=== PATIENT | male | born 1990 | race Caucasian/White ===

== ENCOUNTER → 2017-01-07 | Outpatient (CLI) | payer BC | LOC: LAB 13:44 | PROVIDERS: ATTEND Nurse Practitioner Family | DX: R79.89 Other specified abnormal findings of blood chemistry (principal) | CPT/HCPCS: 36415; 84403 ==

== ENCOUNTER 2018-01-18 02:14 | Observation (INO) ==
[2018-01-18] MEDS ORDERED: Sodium Chloride 0.9% 1,000 ML PRIMARY IV ONE (02:40)
[2018-01-18] MEDS ORDERED: LORazepam 2 MG/1 ML VIAL IVP PRN ×2 (02:40→04:35)
[2018-01-18] MEDS ORDERED: LORazepam 2 MG/1 ML VIAL IVP ONE (02:41)
[2018-01-18 02:51] LABS: BASOPHILS # (AUTO) 0.05 10*3/UL; BASOPHILS % (AUTO) 0.5 % (0-1); EOSINOPHILS # (AUTO) 0.06 10*3/UL; EOSINOPHILS % (AUTO) 0.6 % (0-8); Hematocrit [HCT] 42.8 % (42.0-52.0); MEAN CORPUSCULAR HEMOGLOBIN 31.7 PG (27-31); MEAN CORPUSCULAR HGB CONC 37.4 g/dL (33-37); MEAN CORPUSCULAR VOLUME 84.9 FL (80-90); MEAN PLATELET VOLUME 10.7 FL (7.4-12.2); MONOCYTES # (AUTO) 0.93 10*3/UL (0.3-0.8); MONOCYTES % (AUTO) 9.4 % (5-15); NEUTROPHILS # (AUTO) 2.96 10*3/UL; NEUTROPHILS % (AUTO) 29.9 % (50-80); RED BLOOD COUNT 5.04 10^6/uL (4.70-6.10)
[2018-01-18 02:56] LABS: BLOOD UREA NITROGEN 8 mg/dL (7-22); BUN/CREATININE RATIO 11.42 (6-20); SERUM ALBUMIN 4.7 g/dL (3.5-4.8)
--- NOTE | 2018-01-18 02:56 | EKG ---
[address] [address] Measurements Intervals [place] Rate: 104 P: 265 NC: 66 QRS: 72 QRSD: 149 T: 73 QT: 427 QTc: 487 Interpretive Statements JUNCTIONAL TACHYCARDIA INTRAVENTRICULAR CONDUCTION DELAY [130+ ms QRS DURATION] Compared to ECG 08/23/2017 02:45:06 No significant changes Electronically Signed On 01-20-18 07:54:09 MDT by Merritt Casas MD [email or web address]
[2018-01-18 03:09] LABS: VENOUS PH 7.67 (7.32-7.42)
[2018-01-18 03:11] LABS: PLATELET MORPHOLOGY COMMENT NORMAL MORPHOLOGY (NORM); RBC MORPHOLOGY COMMENT NORMAL MORPHOLOGY (NORM); WBC MORPHOLOGY COMMENT NORMAL MORPHOLOGY (NORM)
[2018-01-18 03:45] LABS: AMPHETAMINE SCREEN NEGATIVE (NEG); CANNABINOID SCREEN,URINE NEGATIVE (NEG); COCAINE SCREEN NEGATIVE (NEG); METHADONE URINE SCREEN NEGATIVE (NEG); METHAMPHETAMINES SCREEN,URINE NEGATIVE (NEG); OPIATE SCREEN,URINE NEGATIVE (NEG); URINE SAMPLE TYPE CATH SPECIMEN; URINE SPECIFIC GRAVITY - MAN 1.015
--- NOTE | 2018-01-18 03:46 | DI ---
EXAM: CT Head Without Intravenous Contrast CLINICAL HISTORY: ITS.REASON seizure; head trauma Physician Notes: Tech Comments: TECHNIQUE: Axial computed tomography images of the head/brain without intravenous contrast. COMPARISON: 08/23/2017 FINDINGS: Brain: Unremarkable. No hemorrhage. No significant white matter disease. No edema. Ventricles: Unremarkable. No ventriculomegaly. Bones/joints: Unremarkable. No acute fracture. Soft tissues: There is mild right frontal scalp soft tissue swelling. Sinuses: Unremarkable as visualized. No acute sinusitis. Mastoid air cells: Unremarkable as visualized. No mastoid effusion. IMPRESSION: 1. No acute intracranial abnormality. 2. Mild right frontal scalp soft tissue swelling.
--- NOTE | 2018-01-18 03:50 | DI ---
EXAM: CT Cervical Spine Without Intravenous Contrast CLINICAL HISTORY: ITS.REASON seizure; head trauma Physician Notes: Tech Comments: TECHNIQUE: Axial computed tomography images of the cervical spine without intravenous contrast. COMPARISON: 12/19/2009 FINDINGS: Vertebrae: Unremarkable. No acute fracture. Discs/spinal canal/neural foramina: No acute findings. No spinal canal stenosis. Soft tissues: Unremarkable. IMPRESSION: Normal cervical spine CT.
--- NOTE | 2018-01-18 03:53 | DI ---
EXAM: CT Maxillofacial Without Intravenous Contrast CLINICAL HISTORY: ITS.REASON facial trauma Physician Notes: Tech Comments: TECHNIQUE: Axial computed tomography images of the face without intravenous contrast. COMPARISON: No relevant prior studies available. FINDINGS: Bones/joints: No acute fracture. Soft tissues: There is mild right frontal scalp soft tissue swelling. Orbits: Unremarkable. Sinuses: Unremarkable. No air-fluid levels. IMPRESSION: Mild right frontal scalp soft tissue swelling. No acute fracture..
[2018-01-18] MEDS ORDERED: LIDOCAINE 2% 20 MG/ML - 20 ML VIAL SUBCUT ONE (04:07)
[2018-01-18] MEDS ORDERED: LevETIRAcetam Tab 500 MG TABLET PO ONE (04:08)
--- NOTE | 2018-01-18 04:29 | PDOC ---
Seizure HPI - General Chief Complaint: Neurological Complaints Stated Complaint: SIEZURE Date Seen by Provider: 01/18/18 Time Seen by Provider: 02:13 Source: POSITIVE: Patient, EMS Exam Limitations: POSITIVE: No limitations Nurse's Notes Reviewed & Considered: Yes EMS Report Reviewed & Considered: Verbal - History of Present Illness Initial Comments: The patient is a 27-year-old male who is brought to the emergency room by ambulance. Patient states that he had a seizure. He states he fell asleep in his chair somewhere between 2300 and midnight. He states he woke up face down on the floor and states he noted he had was having bleeding from 2 lacerations, one above the right eye and one in the left upper eyelid and also bleeding from his nose. He states his nose is swollen. He states that he believes that he had a seizure. He also has a contusion to the tongue. Patient has a known seizure disorder and states he had his first seizure in September and has had one other seizure prior to his present one. He states he is under the care of a neurologist in [place], but cannot remember her name. He states he takes Keppra twice a day. He has a history of chronic back pain for which he takes Flexeril , hydrocodone and gabapentin. He states he has not had any alcohol for 2 years and denies use of illegal drugs. He states that he did have an EEG in [place], but is unsure what the results were. On presentation to the emergency room the patient was alert and oriented but extremely anxious and tremulous and hyperventilating. He denies any headache or neck pain. No focal sensory or motor symptoms. He is noted to have a contusion to his tongue and his nose is swollen and he has a 1-1/2 cm laceration over the left upper eyelid and a 1-1/2 cm laceration above the right eye. Accu-Chek blood glucose was 108. Body Location Affected: REPORTS: Head, Face, Other (Tongue. Probable seizure as above) Timing: REPORTS: Abrupt, Unknown (Onset of seizure activity unknown; patient was alone at home and episode was not witnessed.) Duration: Unknown Severity: Moderate Quality: REPORTS: "Pain" (Patient has some pain to the nose and around his laceration; see diagram) Witnessed Seizure?: No Preceding Symptoms/Context (specify in comments): REPORTS: None, Activity Prior to Seizure (Sleeping), Seiz. Meds Dosages Missed (Patient states he may have missed one dose of Keppra). DENIES: Recent Illness, Fever/Chills, Recent Alcohol Intake, Recent Drug Use, Sleep Deprivation, Changed Med or Dosage Character of Seizure(s): REPORTS: Lost Consciousness, Completely Unresponsive, Other (Probable seizure not witnessed; no seizure activity witnessed in the emergency room). DENIES: Incontinent of Urine, Incontinent of Stool Post-ictal Symptoms: REPORTS: Other (Seizure in any postictal activity not witnessed; see above) Recently seen/treated/hospitalized: Yes Any Prior Injuries Related to Current Complaint?: No - Patient Home Medications Home Medications: Home Medications Oxycodone HCl/Acetaminophen [Percocet 10-325 Mg Tablet] 1 ea PO Q4-6HRSPRN #180 tab 07/07/16 Gabapentin 300 mg PO BID 08/24/17 Cyclobenzaprine HCl [Flexeril] 5 mg PO DAILY 01/18/18 levETIRAcetam Tab [Keppra Tab] 500 mg PO BID 01/18/18 - Patient Allergies Allergies/Adverse Reactions: Allergies 3 Allergy/AdvReac Type Severity Reaction Status Date / Time amoxicillin Allergy NOT Verified 01/18/18 02:26 APPLICABLE Penicillins Allergy HIVES Verified 01/18/18 02:26 tetracycline Allergy HIVES Verified 01/18/18 02:26 Past Medical History - heen HEENT History: Denies History Additional HEENT History: EAR TUBES A CHILD Cardiovascular History: Denies History Respiratory History: Denies History Additional Respiratory History: A CHILD Gastrointestinal History: Denies History Genitourinary History: Denies History Endocrine History: Denies History Musculoskeletal History: Back Pain Prosthesis or Implant: No Additional Musculoskeletal History: MICRO DISCECTOMY IN 2013, L4-L5, L5-S1 FUSION ON 05/12/2015 Neurological History: Seizures Additional Neurological History: CONCUSSION Blood Disorders: Denies History Psychiatric History: Depression History of Sexually Transmitted Diseases: No Cancer History: Denies History In Past Year Been Physically Harmed or Verbally Threatened: No History of MDRO: No History of Other Communicable Diseases: No Tobacco Use: Never Smoker Alcohol Use: Occasionally In the Past 12 Months, Have Used or Abuse Any Substance: None Previous Surgical History: Yes Type / Date of Surgery: MICRO DISCECTOMY. BACK FUSION Anesthesia Reactions: No Malignant Hyperthermia: No Significant Family History: No pertinent family hx Past Medical History Reviewed: Reviewed - No Changes ROS - Limitations ROS Limitations: No Limitations, Other (please comment) (Patient very anxious and tremulous upon presentation to the emergency room; hyperventilating prominently) Constitution: REPORTS: Denies Symptoms Cardiovascular: REPORTS: Denies Cardiac Symptoms Respiratory: REPORTS: Denies Resp Symptoms Neurological: REPORTS: Seizure Activity (As above) Gastrointestinal: REPORTS: Denies GI Symptoms Endocrine: REPORTS: Denies Symptoms Musculoskeletal: REPORTS: Denies MS Symptoms Genitourinary: REPORTS: Denies Symptoms Eyes: REPORTS: Denies Symptoms ENT: REPORTS: Nose Pain, Other (Contusion to tongue. No swollen from trauma. Recent epistaxis) Skin: REPORTS: Other (1-1/2 cm laceration left upper eyelid and one and a half centimeter laceration above right eye) Lympathic: REPORTS: Denies Lympathic Symptoms Immunologic: POSITIVE: Denies Symptoms Psychiatric: POSITIVE: Anxiety Seizure Exam - General Appearance General Appearance: POSITIVE: Alert, Moderate Distress (Quite upset, tremulous and hyperventilating) - HEENT HEENT: POSITIVE: Head Inspection Nml, Eyes Inspection Nml, Ears Inspection Nml, Nose Inspection Nml (Swelling to nose with evidence of recent epistaxes. Septum midline and no septal hematomas), Oral/Dental Inspect. Nml, Pharynx Inspect. Nml, PERRL, EOMI - Pupil Size Pupil Size: 3 mm: Bilateral (PERRLA) - Neck Neck: POSITIVE: Non Tender, Neck Supple, Trachea Midline, Distracting Injuries. NEGATIVE: Nexus Criteria Negative - Respiratory Respiratory: POSITIVE: Chest Non Tender, No Ecchymosis, Breath Sounds Normal, No Respiratory Distress - Cardiovascular Cardiovascular: POSITIVE: Regular Rate and Rhythm, Heart Sounds Normal, Equal Pulses, Strong Pulses, No Murmur, No Gallop, No JVD, No Pulse Deficit Peripheral Pulses: Radial (R): 2+, Radial (L): 2+ - Abdomen Abdomen: Soft: (All Quadrants), Normal Bowel Sounds: (All Quadrants), Denies Tenderness: (All Quadrants), No Splenomegaly: (All Quadrants), No Hepatomegaly: (All Quadrants), No Guarding: (All Quadrants), No Rebound: (All Quadrants), No Palpable Pulse: (All Quadrants), No Palpabale Mass: (All Quadrants), No Distention: (All Quadrants), No Rigidity: (All Quadrants) - Skin Skin: POSITIVE: Other (Laceration was some local swelling left upper eyelid and laceration above right eye) - Extremities Extremity: Non-Tender: (All Extremities), Normal ROM: (All Extremities), Normal Inspection: (All Extremities) - Neuro / Psych Higher Functions: POSITIVE: Oriented x3, Speech Normal, Mood Appropriate, Affect Appropriate Cranial Nerves: POSITIVE: Normal As Tested, No Evidence of Acute CVA Cerebellar: POSITIVE: Normal As Tested Sensorimotor: POSITIVE: No Motor Deficits, No Sensory Deficits, Reflexes Normal , Symmetrical Procedure - Laceration/Wound Repair Site of Lac/Wound:: Left upper eyelid and above right eye; see diagram Time of Suture Placement:: 03:55 Wound Length (cm): 3 Wound's Depth, Shape: Into subcutaneous tissue, Linear Distal CMS: Yes Skin Prep: Other (Wounds cleansed with normal saline) Local Anesthesia Used - Indicate Amt Used in Comment: Lidocaine 2%: Yes Irrigated w/ Saline (mL): 20 Wound Explored: No foreign body removed Wound Debrided: Minimal Wound Repaired With: Sutures single layer Suture Size/Type: 5:0, Ethilon Number of Sutures: 5 Layer Closure?: No Drain Placement: No Sterile Dressing Applied?: Yes Procedure Note:: After local anesthesia with 2% lidocaine, the laceration to the left upper eyelid, which measures about 1.5 cm, was cleansed with normal saline and then repaired with 5-0 nylon simple interrupted sutures 3. Laceration above the right eye was also repaired after local anesthesia with 2% lidocaine; this laceration also measures about 1.5 cm and was repaired with 2 5-0 Ethilon simple interrupted sutures. Images - Head Head: 1 - Laceration 2 - Laceration 3 - Swelling and discomfort on palpation Seizure Progress - Results Reviewed by me Xrays/CTs/US Reviewed by me: Yes Discussed with Radiologist: Yes Radiology Findings: Radiologist report CT scan head, cervical spine and facial bones normal Lab Results Reviewed by Me: Yes (prominent respiratory alkalosis) Lab Results:: Laboratory Results 3 01/18/18 01/18/18 01/18/18 02:15 02:15 02:15 WBC 9.91 RBC 5.04 Hgb 16.0 Hct 42.8 MCV 84.9 MCH 31.7 H MCHC 37.4 H RDW Std Deviation 38.1 L RDW Coeff of Meredith 12.6 Plt Count 319 MPV 10.7 Immature Gran % (Auto) 0.1 Neut % (Auto) 29.9 L Lymph % (Auto) 59.5 H [place] % (Auto) 9.4 Eos % (Auto) 0.6 Baso % (Auto) 0.5 Immature Gran # (Auto) 0.01 Neut # (Auto) 2.96 Lymph # (Auto) 5.90 [place] # (Auto) 0.93 H Eos # (Auto) 0.06 Baso # (Auto) 0.05 WBC Morphology Comment Normal morphology Plt Morphology Comment Normal morphology RBC Morph Comment Normal morphology VBG pH VBG pCO2 VBG HCO3 VBG Base Excess Sodium 141 Potassium 3.8 Chloride 104 Carbon Dioxide 18 L Anion Gap 19 BUN 8 Creatinine 0.7 Estimated GFR > 60 BUN/Creatinine Ratio 11.42 Glucose 108 Calculated Osmolality 290.0 Lactic Acid Calcium 9.5 Magnesium 1.8 Total Bilirubin 0.4 AST 20 L ALT 21 Alkaline Phosphatase 172 H Total Creatine Kinase Total Protein 7.7 Albumin 4.7 Globulin 3.0 Albumin/Globulin Ratio 1.50 Ur Collection Type U Specif Grav (Refrac) Urine Opiates Screen Ur Buprenorphine Ur Oxycodone Screen Urine Methadone Screen Ur Propoxyphene Screen Barbiturate Screen U Tricyclic Antidepress Phencyclidine Screen Amphetamines Screen U Methamphetamines Scrn Benzodiazepines Screen Cocaine Screen U Marijuana (THC) Screen Serum Alcohol < 10 3 01/18/18 01/18/18 01/18/18 02:15 02:50 02:56 WBC RBC Hgb Hct MCV MCH MCHC RDW Std Deviation RDW Coeff of Meredith Plt Count MPV Immature Gran % (Auto) Neut % (Auto) Lymph % (Auto) [place] % (Auto) Eos % (Auto) Baso % (Auto) Immature Gran # (Auto) Neut # (Auto) Lymph # (Auto) [place] # (Auto) Eos # (Auto) Baso # (Auto) WBC Morphology Comment Plt Morphology Comment RBC Morph Comment VBG pH 7.67 H VBG pCO2 15 L VBG HCO3 17 L VBG Base Excess -3 L Sodium Potassium Chloride Carbon Dioxide Anion Gap BUN Creatinine Estimated GFR BUN/Creatinine Ratio Glucose Calculated Osmolality Lactic Acid 6.0 H Calcium Magnesium Total Bilirubin AST ALT Alkaline Phosphatase Total Creatine Kinase 120 Total Protein Albumin Globulin Albumin/Globulin Ratio Ur Collection Type U Specif Grav (Refrac) Urine Opiates Screen Ur Buprenorphine Ur Oxycodone Screen Urine Methadone Screen Ur Propoxyphene Screen Barbiturate Screen U Tricyclic Antidepress Phencyclidine Screen Amphetamines Screen U Methamphetamines Scrn Benzodiazepines Screen Cocaine Screen U Marijuana (THC) Screen Serum Alcohol 3 01/18/18 03:45 WBC RBC Hgb Hct MCV MCH MCHC RDW Std Deviation RDW Coeff of Meredith Plt Count MPV Immature Gran % (Auto) Neut % (Auto) Lymph % (Auto) [place] % (Auto) Eos % (Auto) Baso % (Auto) Immature Gran # (Auto) Neut # (Auto) Lymph # (Auto) [place] # (Auto) Eos # (Auto) Baso # (Auto) WBC Morphology Comment Plt Morphology Comment RBC Morph Comment VBG pH VBG pCO2 VBG HCO3 VBG Base Excess Sodium Potassium Chloride Carbon Dioxide Anion Gap BUN Creatinine Estimated GFR BUN/Creatinine Ratio Glucose Calculated Osmolality Lactic Acid Calcium Magnesium Total Bilirubin AST ALT Alkaline Phosphatase Total Creatine Kinase Total Protein Albumin Globulin Albumin/Globulin Ratio Ur Collection Type Cath specimen U Specif Grav (Refrac) 1.015 Urine Opiates Screen Negative Ur Buprenorphine Negative Ur Oxycodone Screen Negative Urine Methadone Screen Negative Ur Propoxyphene Screen Negative Barbiturate Screen Negative U Tricyclic Antidepress Negative Phencyclidine Screen Negative Amphetamines Screen Negative U Methamphetamines Scrn Negative Benzodiazepines Screen Positive H Cocaine Screen Negative U Marijuana (THC) Screen Negative Serum Alcohol CBC and BMP: 01/18/18 02:15 01/18/18 02:15 EKG Interpreted/Reviewed By Me:: Yes (intraventricular conduction delay) EKG Interpretation:: POSITIVE: Normal Sinus Rhythm, Normal Rate, Normal [place], Normal ST/T, Abnormal EKG. NEGATIVE: Normal Intervals (Intraventricular conduction delay), Normal QRS (Intraventricular conduction delay) - Patient's Progress Pain Medication Addressed: POSITIVE: Not Applicable School/Work Release Addressed: POSITIVE: Not Applicable Re-Examine Time:: 04:25 Re-Examine Comment: Patient given 1 mg of Ativan shortly after arrival for his severe anxiety and hyperventilation. He settled down well with this. Patient also given 500 mg Keppra orally in the emergency room. Lacerations were repaired with 5-0 nylon. Results of radiologic and laboratory studies reviewed with patient. Patient admitted for further monitoring and evaluation. Status: POSITIVE: Improved, Re-Examined - Consult Counseled: POSITIVE: Patient, RE: Lab Results, RE: Radiology Results, RE: DX, RE : Need for F/U Patient Care Time - Estimated PCT Patient Care Time (In Minutes): 60 Vital Signs - Recent Vital Signs Vital Signs: Vital Signs (Last 8 hours) Temp Pulse Resp BP Pulse Ox 01/18/18 02:28 98.3 F 120 H 28 H 131/107 100 - VS Reviewed Vital Signs Reviewed: Yes Discharge Clinical Impression: Seizure, Facial laceration Discharge Disposition: Admit to Inpatient Condition: Good Follow Up With: NONE,NONE [Primary Care Provider] - Date Decision to Admit to Inpatient: 01/18/18 Time Decision to Admit to Inpatient: 04:25
[2018-01-18] MEDS ORDERED: ONDANSETRON 4 MG/2 ML VIAL IVP PRN (04:50)
[2018-01-18] MEDS ORDERED: CALCIUM CARBONATE 500 MG (TUMS) CHEWABLE TABLET PO PRN (04:50)
[2018-01-18] MEDS ORDERED: ACETAMINOPHEN 325 MG TABLET PO PRN (04:50)
[2018-01-18] MEDS ORDERED: DOCUSATE 100 MG CAPSULE PO PRN (04:50)
[2018-01-18] MEDS ORDERED: LIDOCAINE W/ SODIUM BICARB 0.5 ML SYR SUBD PRN (04:50)
[2018-01-18] MEDS ORDERED: oxyCODONE/APAP 10/325 Tab 1 EACH TAB PO PRN (04:50)
[2018-01-18] MEDS: Lactated Ringers 1,000 ML PRIMARY IV SCH ×3 (05:04→20:16)
[2018-01-18] MEDS: MORPHINE SULFATE 2 MG/1 ML IVP PRN ×4 (05:04→20:17)
[2018-01-18] MEDS: GABAPENTIN 300 MG CAPSULE PO SCH ×2 (08:53→21:18)
[2018-01-18] MEDS: LevETIRAcetam Tab 500 MG TABLET PO SCH ×2 (08:53→21:18)
[2018-01-18] MEDS ORDERED: LevETIRAcetam Tab 500 MG TABLET PO SCH (09:00)
--- NOTE | 2018-01-18 10:02 | PDOC ---
HPI - History of Present Illness History of Present Illness: This very nice 27-year-old gentleman with a history of seizure disorder on Keppra 500 mg twice a day and follows the PA in the neurology group in [place]. The patient fell asleep in his chair around 11:00 last night woke up face down on the floor noted some heavy bleeding from lacerations above his eyes and bleeding from his nose also has some tongue contusion but did not need any stitches also has a history of back pain for which he takes Flexeril hydrocodone and gabapentin and has not drank any alcohol for 2 years. He is doing well this morning his sutures look good I did discuss the case with the neurologist which showed recommended to double his Keppra will be kept under observation today possibly discharge in the morning Past Medical History Medical History: Seizure disorder chronic back pain on chronic narcotics Tobacco Use: Never Smoker In the Past 12 Months, Have Used or Abuse Any of the Following Substance: None Medication / Allergies Home Medications: Home Medications 3 Medication Instructions Recorded Confirmed Type Oxycodone HCl/Acetaminophen 1 ea PO Q4-6HRSPRN #180 tab 07/07/16 01/18/18 History [Percocet 10-325 Mg Tablet] Gabapentin 300 mg PO BID 08/24/17 01/18/18 History Cyclobenzaprine HCl [Flexeril] 5 mg PO DAILY 01/18/18 01/18/18 History levETIRAcetam Tab [Keppra Tab] 500 mg PO BID 01/18/18 01/18/18 History Allergies/Adverse Reactions: Allergies 3 Allergy/AdvReac Type Severity Reaction Status Date / Time amoxicillin Allergy NOT Verified 01/18/18 06:25 APPLICABLE Penicillins Allergy HIVES Verified 01/18/18 06:25 tetracycline Allergy HIVES Verified 01/18/18 06:25 Review of Systems - Review of Systems All Systems: Reviewed & No Additional Complaints Except as Stated - Cardiovascular Cardiovascular: DENIES: Negative System Review, Chest Pain, Edema, Syncope, Palpitations, Orthopnea, Paroxysmal Nocturnal Dyspnea, Other, See HPI - Gastrointestinal Gastrointestinal / Abdominal: DENIES: Negative System Review, Nausea, Vomiting, Diarrhea, Constipation, Abdominal Pain, Bloody Stool, Poor Appetite, Heartburn, Regurgitation, Bloating, Lactose Intolerance, Melena, Bright Red Blood per Rectum, Other, See HPI - Neurological Neurologic: REPORTS: Seizures Exam - Vitals Vital Signs: Vital Signs Temperature 98.7 F Temperature Source Temporal Artery Scan Pulse Rate [Apical] 88 Pulse Rate [Pulse Oximeter] 73 Pulse Rate 82 Respiratory Rate 20 Blood Pressure [Right Arm] 105/77 Blood Pressure [Left Arm] 87/61 Blood Pressure 124/84 Pulse Ox 98 Oxygen Delivery Method Room Air Height 6 ft 1 in Weight 174 lb - General General Appearance: No Acute Distress, Cooperative - Head Head Exam: Laceration(s) - Eye Eye Exam: POSITIVE: Normal Appearance, PERRL, EOMI, No Scleral Icterus - Respiratory Respiratory Exam: POSITIVE: Clear to Auscultation - Bilaterally, Breathing Non Labored, Normal To Percussion, Normal to Percussion and Palpation - Cardiovascular Cardiovascular Exam: POSITIVE: RRR, No Murmur, No Clicks, No Gallops, No Rubs, PMI Non-Displaced - GI/Abdominal GI/Abdominal Exam: POSITIVE: Normal Bowel Sounds, Non Tender, Non Distended, Soft, No Masses, No Hepatomegaly, No Splenomegaly, No Organomegaly - Extremities Extremities Exam: POSITIVE: No Clubbing Present, No Edema Present, No Cyanosis Present - Neurological Neurological Exam: POSITIVE: Alert, Oriented x 3, No Facial Droop, Speech Intact / Clear, Moves All Extremities Equally, No Fasciculations, No Clonus - Psychiatric Psychiatric Exam: POSITIVE: Normal Affect, Normal Mood Results - Labs CBC and BMP: 01/18/18 02:15 01/18/18 02:15 Assessment and Plan - Patient Problems (1) Facial laceration Current Visit: Yes Status: Acute Comment: Have been sutured in the ER they look good Code(s): S01.81XA - Laceration without foreign body of other part of head, initial encounter (2) Seizure Current Visit: Yes Status: Acute Comment: Patient's Keppra was doubled we will observe the patient is lactic acid was pretty high will go keep hydrating the patient and recheck a lactic acid later today Code(s): R56.9 - Unspecified convulsions
[2018-01-18] MEDS: HYDROmorphone 2 MG/1 ML IVP PRN (22:01)
[2018-01-19] MEDS: HYDROmorphone 2 MG/1 ML IVP PRN ×3 (04:02→11:55)
[2018-01-19] MEDS: Lactated Ringers 1,000 ML PRIMARY IV SCH (04:07)
[2018-01-19 08:02] VITALS: O2SAT 96
[2018-01-19] MEDS: LevETIRAcetam Tab 500 MG TABLET PO SCH (08:19)
[2018-01-19] MEDS: GABAPENTIN 300 MG CAPSULE PO SCH (08:19)
[2018-01-19 11:43] VITALS: BP 93/64; RESP 16; TEMP 97.6
--- NOTE | 2018-01-19 12:40 | DCSUMMARY ---
Hospitalization Summary Admit Date: 01/18/2018 Discharge Date: 01/19/18 Primary Diagnosis:: seizure disorder Hospital Course: This very pleasant 27-year-old male who has known seizure disorder and was on Keppra, 750 mg twice daily, and he had a breakthrough seizure and was admitted for observation. He feels better today, no seizures overnight. He did have some soft tissue injuries and some lacerations and had to be repaired, and the sutures look good this morning. He denies any chest pain, shortness breath, nausea or vomiting. He does know that he cannot drive until cleared by neurology for at least 90 days after this event. He stated the increased dose and Keppra and has not made it feel any worse. He would like to go home. He denied any chest pain or shortness breath. He denied any nausea or vomiting. Assessment and Plan: 1. As per discharge assessments noted 2. Disposition: Patient is discharged home 3. Condition on discharge, stable and improved. 4. Diet: regular diet 5. Activities: resume normal activities, but no driving until cleared by neurology 6. Follow-Up: 1. Primary care provider within the next 7 days to remove stitches and recheck seizure disorder 2. Neurologist in the next 30 days. 7. Medications at the Time of Discharge: Home Medications 3 Medication Instructions Recorded Confirmed Type Oxycodone HCl/Acetaminophen 1 ea PO Q4-6HRSPRN #180 tab 07/07/16 01/18/18 History [Percocet 10-325 mg Tablet] Gabapentin 300 mg PO BID 08/24/17 01/18/18 History Cyclobenzaprine HCl [Flexeril] 5 mg PO DAILY 01/18/18 01/18/18 History Levetiracetam [Keppra] 1,000 mg PO BID #60 tab 01/19/18 Rx 8. Time, care, counseling and coordination of care for this discharge is greater than 30 minutes. Exam - Vitals Vital Signs: Vital Signs Height 6 ft 1 in Weight 173 lb 3.2 oz Vital Signs - Last Taken Temperature 97.6 F 01/19/18 11:43 Pulse Rate 70 01/19/18 11:43 Respiratory Rate 16 01/19/18 11:43 Blood Pressure 93/64 01/19/18 11:43 Pulse Ox 96 01/19/18 11:43 - General General Appearance: No Acute Distress, Cooperative - Eye Eye Exam: POSITIVE: No Scleral Icterus, Periorbital Swelling (Lacerations look okay, stitches are present. Face is clean, dry, intact and no erythema. Some ecchymosis around both eyes, left greater than right) - ENT ENT Exam: POSITIVE: Mucous Membranes Moist - Respiratory Respiratory Exam: POSITIVE: Clear to Auscultation - Bilaterally, Breathing Non Labored - Cardiovascular Cardiovascular Exam: POSITIVE: RRR, No Murmur, No Clicks, No Gallops, No Rubs, No JVD - GI/Abdominal GI/Abdominal Exam: POSITIVE: Normal Bowel Sounds, Non Tender, Non Distended, Soft - Extremities Extremities Exam: POSITIVE: No Clubbing Present, No Edema Present, No Cyanosis Present - Neurological Neurological Exam: POSITIVE: Alert, Oriented x 3, No Facial Droop, Speech Intact / Clear, Moves All Extremities Equally Data Peritnent Studies: 01/18/18 01/18/18 01/18/18 02:15 02:15 02:15 WBC 9.91 Hgb 16.0 Hct 42.8 Plt Count 319 VBG pH VBG pCO2 VBG HCO3 VBG Base Excess Sodium 141 Potassium 3.8 Chloride 104 Carbon Dioxide 18 L Anion Gap 19 BUN 8 Creatinine 0.7 Estimated GFR > 60 BUN/Creatinine Ratio 11.42 Glucose 108 Calculated Osmolality 290.0 Calcium 9.5 Magnesium 1.8 Total Bilirubin 0.4 AST 20 L ALT 21 Alkaline Phosphatase 172 H Total Creatine Kinase 120 Total Protein 7.7 Albumin 4.7 Benzodiazepines Screen 01/18/18 01/18/18 02:50 03:45 WBC Hgb Hct Plt Count VBG pH 7.67 H VBG pCO2 15 L VBG HCO3 17 L VBG Base Excess -3 L Sodium Potassium Chloride Carbon Dioxide Anion Gap BUN Creatinine Estimated GFR BUN/Creatinine Ratio Glucose Calculated Osmolality Calcium Magnesium Total Bilirubin AST ALT Alkaline Phosphatase Total Creatine Kinase Total Protein Albumin Benzodiazepines Screen Positive H Procedures: [address] [facility]. [facility] [place] [id number] PH: DD: [phone] FAX: [phone] ~DIAGNOSTIC IMAGING REPORT~ Patient: Pradeep Neumann : 1990 Sex: M Age: 27 Exam Name: CT Cervical Spine WO Contrast Exam Date: 01/18/18 Report # : [id number] CPT Code: 52104 EMR/MR #: [id number] Ordering: ETHAN OATES Admiting: Primary: NONE,NONE Attending: Signed EXAM: CT Cervical Spine Without Intravenous Contrast CLINICAL HISTORY: ITS.REASON seizure; head trauma Physician Notes: Tech Comments: TECHNIQUE: Axial computed tomography images of the cervical spine without intravenous contrast. COMPARISON: 12/19/2009 FINDINGS: Vertebrae: Unremarkable. No acute fracture. Discs/spinal canal/neural foramina: No acute findings. No spinal canal stenosis. Soft tissues: Unremarkable. IMPRESSION: Normal cervical spine CT. Dictated By: Elle Aquino MD Signed By: 01/18/18 0350 Elle Aquino MD [address] [facility] [place] [address] PH: DD: [phone] FAX: [phone] ~DIAGNOSTIC IMAGING REPORT~ Patient: Pradeep Neumann : 1990 Sex: M Age: 27 Exam Name: CT Maxfacial WO/con Face Sinus Exam Date: 01/18/18 Report # : [id number] CPT Code: 18323 EMR/MR #: [id number] Ordering: ETHAN OATES Admiting: Primary: NONE,NONE Attending: Signed EXAM: CT Maxillofacial Without Intravenous Contrast CLINICAL HISTORY: ITS.REASON facial trauma Physician Notes: Tech Comments: TECHNIQUE: Axial computed tomography images of the face without intravenous contrast. COMPARISON: No relevant prior studies available. FINDINGS: Bones/joints: No acute fracture. Soft tissues: There is mild right frontal scalp soft tissue swelling. Orbits: Unremarkable. Sinuses: Unremarkable. No air-fluid levels. IMPRESSION: Mild right frontal scalp soft tissue swelling. No acute fracture.. Dictated By: Elle Aquino MD Signed By: 01/18/18 0353 Elle Aquino MD [address] [facility] [place] [address] PH: DD: [phone] FAX: [phone] ~DIAGNOSTIC IMAGING REPORT~ Patient: Pradeep Neumann : 1990 Sex: M Age: 27 Exam Name: CT Cervical Spine WO Contrast Exam Date: 01/18/18 Report # : [id number] CPT Code: 80399 EMR/MR #: [id number] Ordering: ETHAN OATES Admiting: Primary: NONE,NONE Attending: Signed EXAM: CT Cervical Spine Without Intravenous Contrast CLINICAL HISTORY: ITS.REASON seizure; head trauma Physician Notes: Tech Comments: TECHNIQUE: Axial computed tomography images of the cervical spine without intravenous contrast. COMPARISON: 12/19/2009 FINDINGS: Vertebrae: Unremarkable. No acute fracture. Discs/spinal canal/neural foramina: No acute findings. No spinal canal stenosis. Soft tissues: Unremarkable. IMPRESSION: Normal cervical spine CT. Dictated By: Elle Aquino MD Signed By: 01/18/18 0350 Elle Aquino MD Patient Problems - Patient Problem List (1) Seizure Current Visit: Yes Status: Acute Code(s): R56.9 - Unspecified convulsions Category: Medical (2) Facial laceration Current Visit: Yes Status: Acute Code(s): S01.81XA - Laceration without foreign body of other part of head, initial encounter Category: Medical
== END 2018-01-19 13:30 | disposition home or self-care (01) ==
LOC: ER 02:14 → MED/SURG 02:14
PROVIDERS: ADMIT Internal Medicine; ATTEND Internal Medicine

== ENCOUNTER 2018-05-10 07:30 | Inpatient (IN) ==
[~2018-05-10 07:30] MED LIST: Clindamycin 900mg (Premix) 900 MG/50 ML BAG IV ONE; LIDOCAINE W/ SODIUM BICARB 0.5 ML SYR SUBD ONE; Lactated Ringers 1,000 ML PRIMARY IV ONE; Nasal Sanitizer POPSWAB ampule 3 AMP (Nozin) PREOP DOSE ENOS SCH
[2018-05-10] MEDS ORDERED: Lactated Ringers 1,000 ML PRIMARY IV ONE ×3 (10:47→18:02)
[2018-05-10] MEDS ORDERED: Sodium Chloride 0.9% 250 ML ONE (10:47)
[2018-05-10] MEDS ORDERED: Vancomycin Inj 1gm vial ONE (10:47)
[2018-05-10] MEDS ORDERED: LIDOCAINE W/ SODIUM BICARB 0.5 ML SYR ONE (10:47)
[2018-05-10] MEDS ORDERED: Clindamycin 900mg (Premix) 900 MG/50 ML BAG IV ONE (10:47)
[2018-05-10] MEDS ORDERED: MIDAZOLAM 5 MG/1 ML ONE (11:05)
[2018-05-10] MEDS ORDERED: fentaNYL Inj 250 MCG/5 ML VIAL ONE (11:05)
[2018-05-10] MEDS ORDERED: REMIFENTANIL 1 MG/1 ML IV ONE ×2 (11:06→15:25)
[2018-05-10] MEDS ORDERED: KETAMINE 100 MG/1 ML - 5 ML ONE (11:06)
[2018-05-10] MEDS ORDERED: REMIFENTANIL HCL 2 MG VIAL IV ONE (11:06)
[2018-05-10 11:12] LABS: BILIRUBIN,URINE SMALL (NEG); CLARITY,URINE CLEAR (CLEAR); COLOR,URINE YELLOW; GLUCOSE, URINE (UA) NEGATIVE (NEG); OCCULT BLOOD,URINE NEGATIVE (NEG); PROTEIN,URINE 30 mg/dl (NEG); UROBILINOGEN,URINE 0.2 mg/dL (0.2)
[2018-05-10 11:14] LABS: RBC,URINE 0-3 /hpf; SQUAMOUS EPITHELIAL CELL,UR RARE; URINE SAMPLE TYPE CLEAN CATCH URINE; URINE SPECIFIC GRAVITY - MAN 1.026
[2018-05-10] MEDS ORDERED: Propofol 1,000 MG/100 ML VIAL IV ONE (11:20)
[2018-05-10] MEDS ORDERED: ROCURONIUM 10 MG/1 ML - 5 ML VIAL IVP ONE (12:50)
[2018-05-10] MEDS ORDERED: BUPIVACAINE 0.25% W/ EPI - 10 ML VIAL ONE ×2 (13:27→14:03)
[2018-05-10] MEDS ORDERED: Sodium Chloride 0.9% vial 10 ML ONE (13:27)
[2018-05-10] MEDS ORDERED: BACITRACIN 50,000 UNIT VIAL IRRIG ONE (13:27)
[2018-05-10] MEDS ORDERED: BUPivacaine Inj 0.25% PF - 10ml vial ONE (15:46)
[2018-05-10] MEDS ORDERED: BUPivacaine Liposome/PF (Exparel) Inj 20ml vial INFIL ONE (15:47)
[2018-05-10] MEDS ORDERED: LIDOCAINE W/ SODIUM BICARB 0.5 ML SYR SUBD PRN (16:45)
[2018-05-10] MEDS ORDERED: Ondansetron ODT Tab 8 MG TAB PO PRN (16:45)
[2018-05-10] MEDS ORDERED: Lactated Ringers 1,000 ML PRIMARY IV SCH (16:45)
[2018-05-10] MEDS ORDERED: ONDANSETRON 4 MG/2 ML VIAL IVP PRN ×2 (16:45→18:31)
[2018-05-10] MEDS: HYDROmorphone 2 MG/1 ML IVP PRN ×4 (16:47→17:32)
--- NOTE | 2018-05-10 16:50 | GEN.OPNOTE ---
Operative Note Surgery Date: 05/10/18 Preoperative Diagnosis: 1.) Chronic low back pain. 2.) Positive response to dorsal column stimulator trial. Postoperative Diagnosis: 1.) Chronic low back pain. 2.) Positive respose to dorsal column stimulator trial. Procedure: 1.) Plaacement of dorsal column stimulator paddle lead electrode array into the thoracic epidural space through a partial T9 laminectomy. (CPT code: 55208). 2.) Dorsal column stimulator IPG/battery devise into the left buttocks. (CPT code: 84052). 3.) Intra-operative complex programming dorsal column neurostimulator pulse generator /transmitter. (CPT code: 01196) Surgeon: Derrick Mendoza MD Market Consultant: ANNALISE Baird Anesthesia Provider: Mary Page CRNA Anesthesia Type: General Estimated Blood Loss (mL): 30 Fluids: See anesthesia record Pathology: None Indications: Mr. Pradeep Neumann is a 27 year old gentleman referred from Dr. Santizo for a permanent dorsal column stimulator placement after a successful spinal cord stimulator trial. According to Mr. Neumann, he had a disc herniation and was seen in evaluation by Dr. Delgado who referred him to Dr. Barnard for surgical treatment. He underwent a L5-S1 lumbar microdiscectomy, but states his pain was no better after this surgery. He underwent an L5-S1 ALIF by Dr. Linda, which he states that came apart a year later. He then underwent a L5-S1 posterior instrumented fusion, by Dr. Zbigniew Danielle. He states that he never really benefited from any of these surgical procedures. He states that Dr. Danielle referred him to Dr. Santizo. Most of Mr. Neumann's pain is in his low back, which is constant and he rates as a 6/10 in intensity. Mr. Neumann presents today for his permanent dorsal column stimulator placement. Findings: Patent thoracic spinal canal Complications: None Operative Summary: Mr. Neumann was met in the preoperative area. His surgical history and physical was updated. The procedure to to be performed was confirmed with Mr. Neumann and we were both in agreement on the procedure and this matched what was written on the patient's consent form. Any questions that he or his family members had were answered before he was taken back to the operating room suite. Mr. Montano was brought back to the operating room suite and put under general anesthesia and intubated by the anesthesia staff. He had a Ramírez catheter placed in his bladder for the procedure. He had pneumatic compression hose placed on his lower legs bilaterally. Mr. Montano was carefully rolled over onto the Pierre surgical table with his arms gently positioned upwards with his shoulders abducted less than 90. His arms were well-padded with foam padding on top of the padding the surgical armboards. The region of his chest and axilla was checked bilaterally to make sure that there were no pressure points over the region of the brachial plexus bilaterally. His nipples were checked be below the chest pad of the Pierre table with no pressure points. All bony prominences were well padded. His Ramírez catheter was checked be free from kinks. His pneumatic compression hose was attached and pneumatic compression device. The C-arm fluoroscopy unit was used to help localize the skin incision for the approach to the T9-10 level for the planned partial T9 laminectomy for the placement of the dorsal column stimulator paddle lead electrode array into the thoracic epidural space. The intended incision in the left buttocks for the dorsal column stimulator IPG's/battery device had a reading been marked preoperatively. Mr. Neumann was prepped and draped in the usual and standard fashion. He was given 900 mg of Cleocin and 1 g of vancomycin IV for perioperative antibiosis. He was given 10 mg of Decadron IV. A standard surgical timeout was performed identifying the correct patient, the correct procedure, and the correct equipment being available for the procedure. The intended skin incisions were injected subcutaneously with quarter percent Marcaine with 1 in 200,000 epinephrine. 20 mL of local anesthetic was used. The buttocks skin incision was incised with a 10 blade scalpel and all dermal and superficial subcutaneous bleeding points controlled with bipolar cautery. Dissection was continued through the subcutaneous tissue down to a depth of approximately a centimeter and a half and the pocket was made mostly caudal also slightly rostral to the skin incision parallel to the level of the skin for the IPG/battery device. The trial battery was placed in the pocket to make sure that the pocket was big enough for the placement of the battery but still snug enough to keep the battery from moving in the pocket. Two bacitracin soaked sponges were placed into the IPG/battery pocket. Attention was turned to the intended midline thoracic incision. The skin was incised with a 10 blade scalpel and all dermal and superficial subcutaneous bleeding points were controlled bipolar cautery. The dissection was continued through the subcutaneous tissue down to the thoracic fascia. The thoracic fascia was incised along the borders of the spinous processes and subperiosteal dissection was performed down the lamina bilaterally. When the lamina was exposed A Kocker instrument was placed over the spinous process at the level of what was believed to be over the T10 pedicles just below the T9-10 disc space and this was confirmed with AP fluoroscopy. The inferior aspect of the T9 spinous process was removed with a large Leksell rongeur. A partial laminectomy of T9 was performed with the high-speed Groovideo drill with a matchstick bit. An up angled curette was used to dissect the insertion of the yellow ligament from underneath the remaining aspect of the T9 lamina and the plane between the dura and the yellow ligament was established and the yellow ligament was completely removed in the partial laminectomy site with small Kerrison punches. This exposed the thecal sac at this level. A small plastic trial was passed into the thoracic epidural space from the partial laminectomy site passing easily. The large plastic trial was then slipped into the thoracic epidural space passing easily as well. The [employer] Penta dorsal column stimulator paddle lead electrode array was then slipped into the epidural space, also passing easily. The lead was moved rostrally until spot fluoroscopic images demonstrated the upper aspect of the leads to be at the inferior aspect of the T7 vertebral body. The electrode array was slightly to the right but with 1 column of electrode contacts being left of the spinous processes, 1 column of the electrode contacts being in line with the spinous processes and the other columns of electrode contacts being to the right side of midline. This was felt to be a workable location for the programming of the IPG/battery device to address the patient's low back pain by the [employer] sales utility representative. A high-speed drill with a matchstick bit was used to make a small channel through the rostral aspect of the T10 spinous process and a 0 silk suture was passed through this channel and secured tightly to the spinous process and then the lead anchors were secured tightly to the rostral aspect of the T10 spinous process using the same silk suture. An another AP fluoroscopic image demonstrated no movement of the paddle lead electrode array in the thoracic epidural space. A small pocket was made above the fascia on the left at the inferior aspect of the thoracic incision intended for a stress relieving loop of the leads. The lead passer was then placed from this pocket through this subcutaneous tissue to the left buttocks IPG/battery pocket. The trocar was removed from the plastic sleeve. The dorsal column stimulator leads were then placed into the plastic sheath the plastic sheath was pulled through and the contacts on the ends of the leads were then cleansed with bacitracin soaked sponge and dried with a sterile dry sponge. The contacts on the ends of the leads were then slipped into the [employer] Proclaim 7 Elite IPG/battery device. The system was then interrogated demonstrating appropriate impedances were all of the thoracic epidural contacts. The leads were then secured in the IPG/battery device using the AngioScores screwdriver. A gentle toggling each of the leads confirmed that they were secured within the device. The system was then interrogated again demonstrating appropriate impedances along the thoracic epidural contacts. Complex intra-operative programming of the dorsal column stimulator IPG/battery unit was then performed. The surgical sites were both copiously irrigated with bacitracin irrigation. The thoracic surgical site was inspected for bleeding points and none were identified the surgical site was quite dry. A stress relieving loop was then made and placed into the pocket superficial to the fascia on the left at the lower aspect of the incision. The surgical site was again irrigated with bacitracin irrigation. The deep muscle layer was re-approximated with #1 Vicryl suture in an interrupted fashion. The fascia was then closed tightly with #1 Vicryl suture in an interrupted fashion. The surgical site was again irrigated with bacitracin irrigation. The deep subcutaneous tissue and fascia was reapproximated with 2-0 Vicryl suture in a interrupted fashion. The dermis and superficial subcutaneous tissue was then reapproximated with 3-0 Vicryl suture in an inverted interrupted fashion. The IPG/battery site was then closed with 2-0 Vicryl suture in the subcutaneous tissue performed in an interrupted fashion. The dermis and superficial subcutaneous tissue was then reapproximated with 3-0 Vicryl suture in an inverted interrupted fashion. The Ioban drape was pulled back from both skin incisions. The final layer both skin incisions was then performed was surgical stainless steel sarah. The incisions were both cleansed with a bacitracin soaked sponge and dried with a sterile dry sponge. The incisions were then dressed with Mepilex dressings. All surgical drapes removed from Mr. Garcia. He was carefully rolled over onto the PACU stretcher. He was awoken and the anesthesia staff. He was taken to the recovery room in stable condition. All surgical counts reported as correct by the scrub and circulating personnel. A physician's administrative services assistant, Mrs. Chacha Syed PA-C, assisted with the procedure including the exposure and closure portions of the procedure. She also provided irrigation and suctioning throughout the procedure.
[2018-05-10] MEDS ORDERED: HYDROmorphone 2 MG/1 ML ONE (16:51)
[2018-05-10] MEDS ORDERED: DIAZEPAM 5 MG TABLET PO ONE (17:23)
[2018-05-10] MEDS ORDERED: KETOROLAC 30 MG/1 ML VIAL IVP ONE ×2 (17:23→18:02)
[2018-05-10] MEDS ORDERED: DIAZEPAM 5 MG TABLET ONE (17:28)
[2018-05-10] MEDS ORDERED: Acetaminophen 1000mg Inj 1,000 MG/100 ML VIAL IV PRN (17:52)
[2018-05-10] MEDS ORDERED: Acetaminophen 1000mg Inj 1,000 MG/100 ML VIAL IV ONE ×2 (17:53→18:01)
[2018-05-10] MEDS ORDERED: LORazepam 2 MG/1 ML VIAL ONE (17:54)
[2018-05-10] MEDS ORDERED: KETOROLAC 30 MG/1 ML VIAL ONE (17:54)
--- NOTE | 2018-05-10 18:05 | CRNA.PROGR ---
Anesthesia Time - Procedure/Recovery Time Start Date: 05/10/18 End Date: 05/10/18 Anesthesia : Time In: 13:36 Anesthesia : Time Out: 16:43 Anesthesia : Total Time: 187 - Total Anesthesia Time Total Anesthesia Time (minutes): 187 - Other Weight: 78.018 kg Height: 6 ft 1 in Body Mass Index (BMI): 22.6 Physical Status: P2 (tobacco, epilepsy, chronic pain,) Anesthesia Type: General Anesthesia : ET
--- NOTE | 2018-05-10 18:07 | CRNA.PROGR ---
Anesthesia Recovery Phase I - Post Anesthesia Evaluation Patient's Condition on Arrival in Phase I: Fair Patient's Condition on Arrival in Phase II: (post operative complaints of pain far outweigh any surgical tresspass. multimodal pain therapy under way.) Pain Level: 8
[2018-05-10] MEDS ORDERED: Fleet Enema 133ml RECTAL PRN (18:31)
[2018-05-10] MEDS ORDERED: MORPHINE SULFATE 2 MG/1 ML IVP PRN (18:31)
[2018-05-10] MEDS ORDERED: MAGNESIUM 400 MG/5 ML - 30 ML (MILK OF MAGNESIA) PO PRN (18:31)
[2018-05-10] MEDS ORDERED: BISACODYL 5 MG TABLET PO PRN (18:31)
[2018-05-10] MEDS ORDERED: Ondansetron ODT Tab 4 MG TAB PO PRN (18:31)
[2018-05-10] MEDS ORDERED: Prochlorperazine Edisylate Inj 10mg/2ml vial IVP PRN (18:31)
[2018-05-10] MEDS ORDERED: Vancomycin-PHA to Dose IV SCH (18:31)
[2018-05-10] MEDS ORDERED: PROMETHAZINE 25 MG/1 ML VIAL IM PRN (18:31)
[2018-05-10] MEDS ORDERED: oxyCODONE IR Tab 5 MG TAB PO PRN ×2 (18:31→18:43)
[2018-05-10] MEDS ORDERED: DOCUSATE 100 MG CAPSULE PO PRN (18:31)
[2018-05-10] MEDS ORDERED: MAGNESIUM CITRATE 296 ML SOLUTION PO PRN (18:31)
[2018-05-10] MEDS: DIAZEPAM 5 MG TABLET PO PRN (19:04)
[2018-05-10] MEDS: Clindamycin 900mg (Premix) 900 MG/50 ML BAG IV SCH (19:04)
--- NOTE | 2018-05-10 19:07 | NEURO.PROG ---
Subjective Post Op Day: 0 Pain Management: PO Ramírez Catheter: No Flatus: Yes Diet: Regular Ambulating: Yes Additional Details: Awake and alert. Back spasms, but pain "not to bad". Denies any new leg symptoms. Good/full knee flexion/dorsiflexion/plantarflexion bilaterally. PLAN: 1.) Continue post-operative antibiotics. 2.) Continue post-operative pain control. 3.) Mobilize. Objective : Data - Vital Signs Vital Signs and I&O: Vital Signs - Last Taken Temperature 98.8 F 05/10/18 11:44 Pulse Rate 81 05/10/18 11:44 Respiratory Rate 16 05/10/18 11:44 Blood Pressure 131/91 05/10/18 11:44 Pulse Ox 98 05/10/18 11:44
[2018-05-10] MEDS: LevETIRAcetam Tab 500 MG TABLET PO SCH (21:10)
[2018-05-10] MEDS: GABAPENTIN 300 MG CAPSULE PO SCH (21:10)
--- NOTE | 2018-05-10 21:10 | CONSULT ---
Consult Note - Consult Consult Date: 05/10/18 Reason for Consult: Other (Neurosurgery) Requesting Physician: Dr. Mendoza Primary Care Provider: NONE NONE - History of Present Illness History of Present Illness: This is a 27 years old male with medical history significant for history of seizure disorder diagnosed September this year it's grand mal seizures, he had 3 seizures this year the last time was December this year he is on Keppra, [facility] and he scheduled to have an MRI and an EEG, also has chronic back pain on chronic pain medications he came in today to have a spinal stimulator insertion and was done by Dr. Mendoza. The hospitalist service were consulted for management of medical issues. The patient said that he had some pain in his back but otherwise denying other symptoms. He denied shortness of breath, nausea. Past Medical History Medical History: 1. Seizure disorder, grand mal diagnosed September 2017. So far he said he had 3 seizures this year. One of which was witnessed. Currently on Keppra. The last time he had a seizure was December 2017. 2. chronic back pain on chronic narcotics. 3. anxiety Surgical History: 1. S/P L5-S1 lumbar microdiscectomy. 2. L5-S1 posterior instrumented fusion Family History: Reviewed an Not Pertinent Past Social History: Does not smoke, he chews, no alcohol no drugs. Tobacco Use: Never Smoker Do you dip or chew tobacco: Yes (1 can per day) In the Past 12 Months, Have Used or Abuse Any of the Following Substance: None Alcohol Use: None Review of Systems - Review of Systems All Systems: Reviewed & No Additional Complaints Except as Stated Medication / Allergies Home Medications: Home Medications Medication Instructions Recorded Confirmed Type Levetiracetam [Keppra] 1,000 mg PO BID #60 tab 01/19/18 05/09/18 Rx diazepam 5 mg tablet 5 mg PO TID PRN tab 04/18/18 05/10/18 History gabapentin 300 mg capsule 300 mg PO TID cap 04/18/18 05/09/18 History oxycodone 20 mg tablet 20 mg PO .5xdaily PRN tab 04/18/18 05/09/18 History Allergies/Adverse Reactions: Allergies Allergy/AdvReac Type Severity Reaction Status Date / Time amoxicillin Allergy NOT Verified 05/09/18 09:18 APPLICABLE Penicillins Allergy HIVES Verified 05/09/18 09:18 tetracycline Allergy HIVES Verified 05/09/18 09:18 Exam - Vitals Vital Signs: Vital Signs Temperature 97.9 F Temperature Source Temporal Artery Scan Pulse Rate [Pulse Oximeter] 80 Pulse Rate 71 Respiratory Rate 20 Blood Pressure [Right Arm] 123/90 Blood Pressure 114/89 Pulse Ox 96 Oxygen Flow Rate 2LNC Oxygen Delivery Method Room Air Height 6 ft 1 in Weight 172 lb - General General Appearance: No Acute Distress, Thin - Head Head Exam: Normal Inspection - Eye Eye Exam: POSITIVE: Normal Appearance - ENT ENT Exam: POSITIVE: Normal Exam - Neck Neck Exam: Normal Inspection - Respiratory Respiratory Exam: POSITIVE: Clear to Auscultation - Bilaterally - Cardiovascular Cardiovascular Exam: POSITIVE: RRR - GI/Abdominal GI/Abdominal Exam: POSITIVE: Normal Bowel Sounds, Non Tender, Non Distended, Soft, No Organomegaly - Rectal Rectal Exam: POSITIVE: Deferred - External Exam: POSITIVE: Deferred - Extremities Extremities Exam: POSITIVE: Normal Inspection - Neurological Neurological Exam: POSITIVE: Alert, Oriented x 3, CN II-XII Intact, Speech Intact / Clear, Moves All Extremities Equally - Psychiatric Psychiatric Exam: POSITIVE: Normal Affect - Integumentary Integumentary Exam: POSITIVE: Normal Color Assessment and Plan - Patient Problems (1) Status post insertion of spinal cord stimulator Current Visit: Yes Status: Acute Comment: Regarding pain management will leave it to Dr. Mendoza. He Put him on his usual pain medication and wrote for morphine PRN Code(s): Z98.890 - Other specified postprocedural states (2) Epilepsy Current Visit: No Status: Chronic Comment: Continue Keppra. Code(s): G40.909 - Epilepsy, unspecified, not intractable, without status epilepticus
[2018-05-10] MEDS: oxyCODONE IR Tab 15 MG, oxyCODONE IR Tab 5 MG PO PRN ×2 (22:50)
[2018-05-10] MEDS ORDERED: oxyCODONE IR Tab 15 MG, oxyCODONE IR Tab 5 MG PO SCH ×2 (23:00)
[2018-05-11] MEDS: DIAZEPAM 5 MG TABLET PO PRN ×3 (00:43→14:14)
[2018-05-11] MEDS: Clindamycin 900mg (Premix) 900 MG/50 ML BAG IV SCH (01:31)
[2018-05-11] MEDS: oxyCODONE IR Tab 15 MG, oxyCODONE IR Tab 5 MG PO PRN ×6 (04:11→12:37)
[2018-05-11 05:42] LABS: BASOPHILS # (AUTO) 0.02 10*3/UL; BASOPHILS % (AUTO) 0.4 % (0-1); EOSINOPHILS # (AUTO) 0.04 10*3/UL; EOSINOPHILS % (AUTO) 0.8 % (0-8); Hemoglobin [HGB] 12.9 g/dL (14.0-18.0); LYMPHOCYTES # (AUTO) 2.53 10*3/uL; MEAN CORPUSCULAR HEMOGLOBIN 30.1 PG (27-31); MEAN CORPUSCULAR HGB CONC 34.9 g/dL (33-37); MEAN CORPUSCULAR VOLUME 86.4 FL (80-90); MEAN PLATELET VOLUME 10.5 FL (7.4-12.2); MONOCYTES # (AUTO) 0.45 10*3/UL (0.3-0.8); MONOCYTES % (AUTO) 8.6 % (5-15); NEUTROPHILS # (AUTO) 2.18 10*3/UL; NEUTROPHILS % (AUTO) 41.7 % (50-80); RED BLOOD COUNT 4.28 10^6/uL (4.70-6.10)
[2018-05-11 05:55] LABS: PLATELET MORPHOLOGY COMMENT NORMAL MORPHOLOGY (NORM); RBC MORPHOLOGY COMMENT NORMAL MORPHOLOGY (NORM); WBC MORPHOLOGY COMMENT NORMAL MORPHOLOGY (NORM)
[2018-05-11 06:01] LABS: BLOOD UREA NITROGEN 7 mg/dL (7-22)
[2018-05-11] MEDS: LevETIRAcetam Tab 500 MG TABLET PO SCH (09:00)
[2018-05-11] MEDS: GABAPENTIN 300 MG CAPSULE PO SCH (09:00)
--- NOTE | 2018-05-11 10:40 | CRNA.PROGR ---
Anesthesia Note - Progress Notes Anesthesia Progress Note: Pradeep had a difficult time with pain in PACU last evening. In part of that treatment of his pain I gave him Ketamine 20 mg IV at 1728. I don't believe this was documented last night. Thanks
[2018-05-11] MEDS ORDERED: Lactated Ringers 1,000 ML PRIMARY IV ONE (11:23)
--- NOTE | 2018-05-11 12:27 | OTI REPORT ---
Thank you for the referral of Pradeep Neumann. He was seen on 05/11/18 for an occupational therapy inpatient evaluation secondary to back surgery for implementation of a spinal stimulator. SUBJECTIVE: The patient is a 27-year-old male. The patient reports a pain level currently of 8/10 on the verbal analog scale (0=no pain, 10=worst pain) in his back and he has had some difficulty with back spasms this morning; however, he does want to try to get up and get moving. The patient reports that he lives in [place], [place]. He has three stairs to get into his home with hand rails. Once in the home, there are 13 stairs to get to the bedroom. The patient has had prior back surgeries to include fusions, laminectomies, and a failed fusion surgery, so the patient is familiar with lower extremity dressing techniques. The patient does live at home with his significant other, so he does have assistance. He states he is hoping to return home as soon as possible. PAST MEDICAL HISTORY: Past medical history can be found in the patient's medical record. OBJECTIVE FINDINGS: General observations: The patient was educated in post op back precautions to include bending/lifting/twisting and was instructed on how to use his back brace by the physical therapist. Activities of daily living: The patient was given a sprayer hand, long handled bath sponge, and a long handled shoe horn. The patient does have a sock aide at home that he has used with prior surgeries. Upon sitting edge of bed, the patient demonstrated the ability to don sweatpants with the sprayer hand and set up assistance. The patient was able to don his back brace. The patient did require assistance to put on his JUNIOR hose and socks this morning as he did not have his sock aide from home. His significant other reports she is able to help with this upon returning home. Bed mobility: The patient demonstrated the ability to perform log rolling technique without difficulty to sit up edge of bed. Transfers: The patient performed a sit to stand transfer with contact guard assist for safety. Ambulation: The patient did perform ambulation with physical therapy. ASSESSMENT: The patient's rehab potential is good. The patient demonstrated the ability to complete lower extremity dressing without difficulty. Problem List: Increased pain TREATMENT PLAN: Patient will be discharged from occupational therapy services due to meeting all goals. INITIAL TREATMENT: Treatment today consisted of the initial evaluation activities only. [facility]
--- NOTE | 2018-05-11 12:52 | NEURO.PROG ---
Subjective Post Op Day: 1 Pain Management: PO Ramírez Catheter: No Flatus: Yes Diet: Regular Ambulating: Yes Additional Details: Pradeep reportedly had a good night with reasonable pain management though he continues to be bothered by back spasm. This morning he has been up in his room without difficulty. He incisions are dry and intact. He feels ready to go home. Dr. Mendoza gave him discharge instructions including wound care and activity. He will see Dr. Mendoza in clinic in 2 weeks. He has pain medication at home through a pain contract. Plan is to discharge home. Objective : Data - Labs CBC and BMP: 05/11/18 04:45 05/11/18 04:45 - Vital Signs Vital Signs and I&O: Vital Signs - Last Taken Temperature 97.9 F 05/11/18 08:52 Pulse Rate 74 05/11/18 08:52 Respiratory Rate 20 05/11/18 08:52 Blood Pressure 129/96 05/11/18 08:52 Pulse Ox 98 05/11/18 08:52 Intake and Output (24hr x 4 totals) 05/09/18 05/10/18 05/11/18 05/12/18 05:59 05:59 05:59 05:59 Intake Total 2855 / 2855 Output Total 500 / 500 Balance 2355 / 2355
--- NOTE | 2018-05-12 12:21 | PTI REPORT ---
Thank you for the referral of Pradeep Neumann. He was seen on 05/11/18 for an inpatient evaluation secondary to a laminectomy and spinal stimulator implantation. SUBJECTIVE: The patient is a 27-year-old male who underwent a spinal stimulator placement. The patient reports that he is in a lot of pain this morning and complains of back spasms. He states that his pain is an 8/10 on the verbal analog scale (0=no pain, 10=worst pain). The patient reports history of multiple back surgeries including a laminectomy in 2015, a failed fusion from 2016 which they did have to go back in and repair, and most recently the spinal stimulator placement. The patient reports that he is anxious this morning and just wants to get back home. He does live here in [place] with his significant other. He states that they have three stairs into the house and 13 stairs to the bedroom. He states that there is railings into the house and to the bedroom. The patient has a history of one fall over the last six months that he states was secondary to a seizure that he had. The patient does have a history of a sciatic issue down the left lower extremity and weakness of the left lower extremity. PAST MEDICAL HISTORY: Past medical history can be found in the patient's medical record. OBJECTIVE FINDINGS: General observations: The patient is alert and oriented to setting upon PT arrival. The patient is supine in bed with head of bed elevated. The patient does have an IV in place which nursing did block in order for us to get up and do walking and stairs as the patient states he is very anxious to get out of here and just wants to get everything done that he needs to. Bed mobility: The patient did not have the JUNIOR hose on, so we did help place those on the patient prior to him performing a log roll to go from supine to seated position. The patient was able to perform the log roll without need of verbal cueing. The patient demonstrated good seated edge of bed balance. In that position, the patient was able to place the abdominal binder around his mid back just to provide some support. The patient was then educated on do's and don'ts following his back surgery including no bending/lifting/twisting. He is to wear the brace when he is up as a reminder. The patient was able to log roll back into bed. Transfers: The patient was able to perform a sit to stand transfer with stand by assist x1 for safety. The patient demonstrated fair balance but on the way to ambulating to the bathroom, he did have a tendency to reach out to hold onto things so the therapist did get a single point cane for the patient to try. Ambulation: After the patient performed toileting activity we went out to the storm where he walked 150 feet with use of single point cane in the right hand and demonstrated improved ambulation and safety with ambulation with use of the single point cane. The patient then ascended and descended one flight of stairs with use of the hand railing on the left side and also use of single point cane. ASSESSMENT: The patient has good rehab potential. The patient has met goals for therapy as he was able to ambulate, demonstrate proper log roll, and perform a flight of stairs. Problem List: Patient is status post op for spinal stimulator Back pain Physical Therapy Goals: To be met following discharge from inpatient: Patient may receive orders for outpatient physical therapy if deemed necessary by his surgeon. TREATMENT PLAN: Patient has met goals and is safe to discharge from physical therapy. INITIAL TREATMENT: Treatment today consisted of the initial evaluation and one unit of functional activity. Following treatment the patient was left in bed with bed alarm set and call light within reach. [facility]
== END 2018-05-11 14:15 | disposition home or self-care (01) | DRG 518 ==
LOC: OPS 10:50 → MED/SURG 18:18
PROVIDERS: ADMIT Neurological Surgery; ATTEND Neurological Surgery